=== PATIENT | female | born 1955 | race Two or more races ===

== ENCOUNTER 2016-09-28 18:01 | Emergency (ER) | payer BC, OTHER ==
[~2016-09-28] VITALS: Ht 157.5 cm; Wt 62.1 kg
[~2016-09-28 18:01] MED LIST: LOSA25TA3 PO; [UNRECOGNIZED DRUG - REMARK]; [UNRECOGNIZED DRUG - REMARK]
[2016-09-28] MEDS ORDERED: MORPHINE SULFATE INJ 2 MG/ML DISP.SYRIN ONE (19:27)
[2016-09-28] MEDS ORDERED: IV NS 0.9% 1,000 ML ONE (19:28)
[2016-09-28] MEDS ORDERED: METOCLOPRAMIDE HCL 10 MG/2 ML VIAL ONE (19:28)
[2016-09-28] MEDS ORDERED: IV SET PRIMARY 1 EA INFUS.SET MC ONE (19:28)
[2016-09-28] MEDS ORDERED: MORPHINE SULFATE INJ 2 MG/ML DISP.SYRIN IJ ONE (19:30)
[2016-09-28] MEDS ORDERED: METOCLOPRAMIDE HCL 10 MG/2 ML VIAL IV ONE (19:30)
[2016-09-28] MEDS ORDERED: IV NS 0.9% 1,000 ML BAG IV ONE (19:30)
[2016-09-28 21:07] VITALS: BP 161/81
== END 2016-09-28 21:08 | disposition home or self-care (01) ==
LOC: ER 18:06
DX: R51 Headache (principal); G43.909 Migraine, unspecified, not intractable, without status migrainosus; K21.9 Gastro-esophageal reflux disease without esophagitis; Z90.710 Acquired absence of both cervix and uterus
CPT/HCPCS: 96361; 96374; 96375; 99284; J2270; J2765; J7030

== ENCOUNTER 2016-11-04 06:13 | Outpatient (CLI) | payer BC, OTHER ==
[2016-11-04 08:21] LABS: BASOPHILS % (AUTO) 0.3 % (0.0-2.0); DIFF TOTAL % 100 %; EOSINOPHILS # (AUTO) 0.1 /CMM (0.0-0.7); EOSINOPHILS % (AUTO) 2.1 % (0.0-6.0); HEMATOCRIT 42 % (33-45); KETONES,URINE NEGATIVE (NEGATIVE); LEUKOCYTE ESTERASE ,URINE 3+ (NEGATIVE); LYMPHOCYTES % (AUTO) 36.7 % (20.0-44.0); MEAN CORPUSCULAR HEMOGLOBIN 30 PG (26.0-33.0); MEAN CORPUSCULAR HGB CONC 34 g/dl (31.0-36.0); MEAN CORPUSCULAR VOLUME 90 fL (82-100); MONOCYTES # (AUTO) 0.3 /CMM (0.1-1.30); MONOCYTES % (AUTO) 6.1 % (2.0-12.0); NEUTROPHILS % (AUTO) 54.8 % (43.0-81.0); PLATELET COUNT (AUTO) 289 /CMM (150-450); RED BLOOD CELL COUNT(AUTO) 4.66 MIL/uL (4.0-5.2); WHITE BLOOD COUNT (AUTO) 5.5 K/uL (4.3-11.0)
[2016-11-04 08:26] LABS: ADD UA MICROSCOPIC YES
[2016-11-04 08:37] LABS: ALBUMIN 3.7 g/dL (3.4-5.0); BILIRUBIN,TOTAL 0.5 mg/dL (0.2-1.0); CALCIUM, SERUM 8.8 mg/dL (8.5-10.1); CREATININE 0.7 mg/dL (0.6-1.3); POTASSIUM 3.7 mmol/L (3.5-5.1); TOTAL PROTEIN, SERUM 7.5 g/dL (6.4-8.2)
[2016-11-04 08:42] LABS: THYROID STIMULATING HORMONE 2.969 uIU/mL (0.358-3.74)
[2016-11-04 09:15] LABS: ADD URINE CULTURE YES; RBC,URINE 0-2 /HPF (0-2)
== END 2016-11-04 23:59 | disposition home or self-care (01) ==
LOC: LAB 06:13
DX: I10 Essential (primary) hypertension (principal); K21.9 Gastro-esophageal reflux disease without esophagitis; E78.5 Hyperlipidemia, unspecified; E55.9 Vitamin D deficiency, unspecified; R53.83 Other fatigue
CPT/HCPCS: 36415; 80053-TC; 80061-TC; 81000-TC; 82272-TC; 82306; 84439-TC; 84443-TC; 84481; 85025-TC; 87086-TC

== ENCOUNTER 2017-09-16 09:06 | Outpatient (CLI) | payer BC, OTHER | END 2017-09-17 23:59 | disposition home or self-care (01) | LOC: RAD 09:06 | DX: M25.521 Pain in right elbow (principal) | CPT/HCPCS: 73080-TC ==

== ENCOUNTER 2017-12-11 02:01 | Emergency (ER) | payer BC, OTHER ==
[~2017-12-11] VITALS: Ht 154.9 cm; Wt 61.2 kg
--- NOTE | 2017-12-11 02:01 | NUR ---
PT C/O ITCHING AND REDNESS THROUGHOUT BODY S/P EATING DORITOS 10PM. NO SOB OR PAIN. VSS NAD. WILL CONTINUE TO MONITOR FOR ANY CHANGES DURING THE SHIFT.
[2017-12-11] MEDS ORDERED: diphenhydrAMINE HCL 50 MG/ML VIAL ONE (02:20)
[2017-12-11] MEDS ORDERED: predniSONE 20 MG TABLET ONE (02:21)
[2017-12-11] MEDS ORDERED: predniSONE 20 MG TABLET PO ONE (02:30)
[2017-12-11] MEDS ORDERED: diphenhydrAMINE HCL 50 MG/ML VIAL IM ONE (02:30)
--- NOTE | 2017-12-11 03:19 | NUR ---
PT TO SPEAK TO NURSING APPOINTMENT COORDINATOR TO DETERMINE IF GOING BACK TO WORK OR NOT
[2017-12-11 03:22] VITALS: BP 154/113
== END 2017-12-11 03:23 | disposition home or self-care (01) ==
LOC: ER 02:03
DX: T78.1XXA Other adverse food reactions, not elsewhere classified, initial encounter (principal); I10 Essential (primary) hypertension; K21.9 Gastro-esophageal reflux disease without esophagitis; G43.909 Migraine, unspecified, not intractable, without status migrainosus; G89.29 Other chronic pain; Z90.710 Acquired absence of both cervix and uterus; X58.XXXA Exposure to other specified factors, initial encounter
CPT/HCPCS: A4606; J1200; Z7610

== ENCOUNTER 2017-12-17 12:24 | Emergency (ER) | payer BC, OTHER ==
[~2017-12-17] VITALS: Ht 165.1 cm; Wt 62.1 kg
--- NOTE | 2017-12-17 12:37 | NUR ---
BB DAUGHTER: COUGH, HEADACHE, NAUSEA, EAR PAIN, FLU SYMPTOMS SINCE TUESDAY
--- NOTE | 2017-12-17 12:37 | NUR ---
BB DAUGHTER: COUGH, HEADACHE, NAUSEA, EAR PAIN, FLU SYMPTOMS SINCE TUESDAY
[2017-12-17 12:54] VITALS: BP 155/86
--- NOTE | 2017-12-17 12:54 | NUR ---
Patient discharged to home in stable condition. Written and verbal after care instructions given. Patient verbalizes understanding of instruction.
== END 2017-12-17 12:55 | disposition home or self-care (01) ==
LOC: ER 12:27
DX: J40 Bronchitis, not specified as acute or chronic (principal); J06.9 Acute upper respiratory infection, unspecified; I10 Essential (primary) hypertension; K21.9 Gastro-esophageal reflux disease without esophagitis; G89.29 Other chronic pain; G43.909 Migraine, unspecified, not intractable, without status migrainosus; Z90.710 Acquired absence of both cervix and uterus
CPT/HCPCS: A4606; Z7610

== ENCOUNTER 2018-04-11 13:08 | Emergency (ER) | payer BC, OTHER ==
[~2018-04-11] VITALS: Ht 152.4 cm; Wt 56.2 kg
--- NOTE | 2018-04-11 13:20 | NUR ---
PRESENTS TO ER C/O L SHOULDER PAIN S/P LIFTING HEAVY OBJECT AT HOME. NO TRAUMA NOTED, A/OX 4, BREATHING EVEN AND UNLABORED. NO SOB, NAD, VITALS STABLE. SAFETY AND COMFORT MEASURES IN PLACE. AWAITING MD ORDERS.
[2018-04-11] MEDS ORDERED: KETOROLAC TROMETHAMINE INJ 60 MG/2 ML VIAL IM ONE (13:30)
[2018-04-11] MEDS ORDERED: KETOROLAC TROMETHAMINE INJ 30 MG/ML VIAL ONE (13:34)
[2018-04-11 13:43] VITALS: BP 143/82
--- NOTE | 2018-04-11 13:44 | NUR ---
Patient discharged to home in stable condition. Written and verbal after care instructions given. Patient verbalizes understanding of instruction.
== END 2018-04-11 13:43 | disposition home or self-care (01) ==
LOC: ER 13:15
DX: S29.012A Strain of muscle and tendon of back wall of thorax, initial encounter (principal); S46.912A Strain of unspecified muscle, fascia and tendon at shoulder and upper arm level, left arm, initial encounter; M62.830 Muscle spasm of back; G43.909 Migraine, unspecified, not intractable, without status migrainosus; K21.9 Gastro-esophageal reflux disease without esophagitis; G89.29 Other chronic pain; Z90.710 Acquired absence of both cervix and uterus; Z98.890 Other specified postprocedural states; X50.0XXA Overexertion from strenuous movement or load, initial encounter; Y93.89 Activity, other specified; Y92.009 Unspecified place in unspecified non-institutional (private) residence as the place of occurrence of the external cause; Y99.8 Other external cause status
CPT/HCPCS: A4606; J1885; Z7610

== ENCOUNTER 2018-05-29 12:07 | Emergency (ER) | payer MEDICARE, BC, OTHER ==
[~2018-05-29] VITALS: Ht 154.9 cm; Wt 62.6 kg
--- NOTE | 2018-05-29 12:20 | NUR ---
PATIENT TO ED DT NECK PAIN AND POSTERIOR HEAD PAIN S/P GLF X 2 DAYS AGO, -KO. PATIENT IS AWAKE AND ALERT. NOT IN DISTRESS. SKIN IS WARM TO TOUCH AND NON DIAPHORETIC. PT IS AFEBRILE. VSS
[2018-05-29] MEDS ORDERED: ONDANSETRON 4 MG TAB.RAPDIS ONE (12:59)
[2018-05-29] MEDS ORDERED: HYDROCODONE/APAP 5/325MG 1 EACH TABLET ONE (12:59)
[2018-05-29] MEDS ORDERED: HYDROCODONE/APAP 5/325MG 1 EACH TABLET PO ONE (13:00)
[2018-05-29] MEDS ORDERED: ONDANSETRON 4 MG TAB.RAPDIS PO ONE (13:00)
[2018-05-29 14:42] VITALS: BP 132/88
--- NOTE | 2018-05-29 14:42 | NUR ---
Patient discharged to home in stable condition. Written and verbal after care instructions given. Patient verbalizes understanding of instruction.
== END 2018-05-29 14:43 | disposition home or self-care (01) ==
LOC: ER 12:15
DX: S16.1XXA Strain of muscle, fascia and tendon at neck level, initial encounter (principal); M19.011 Primary osteoarthritis, right shoulder; M19.012 Primary osteoarthritis, left shoulder; R51 Headache; G89.29 Other chronic pain; M54.9 Dorsalgia, unspecified; I10 Essential (primary) hypertension; K21.9 Gastro-esophageal reflux disease without esophagitis; Z90.710 Acquired absence of both cervix and uterus; Z98.890 Other specified postprocedural states; W18.30XA Fall on same level, unspecified, initial encounter; Y93.89 Activity, other specified; Y92.89 Other specified places as the place of occurrence of the external cause; Y99.8 Other external cause status
CPT/HCPCS: 70450; 72125; 73030 ×2; 99284; A4606; Q0162; Z7610

== ENCOUNTER 2018-09-07 15:42 | Emergency (ER) | payer BC, MEDICARE ==
[~2018-09-07] VITALS: Ht 152.4 cm; Wt 61.7 kg
[2018-09-07 15:52] VITALS: BP 186/110
== END 2018-09-07 16:38 | disposition home or self-care (01) ==
LOC: ER 15:44
DX: J40 Bronchitis, not specified as acute or chronic (principal); I10 Essential (primary) hypertension; Z90.89 Acquired absence of other organs; Z90.710 Acquired absence of both cervix and uterus; Z98.890 Other specified postprocedural states; Z79.899 Other long term (current) drug therapy
CPT/HCPCS: A4606; Z7610

== ENCOUNTER 2019-01-02 09:00 | Outpatient (CLI) | payer BC ==
[2019-01-02 09:52] LABS: BASOPHILS % (AUTO) 0.6 % (0.0-2.0); EOSINOPHILS % (AUTO) 2.8 % (0.0-6.0); HEMATOCRIT 42 % (33-45); HEMOGLOBIN 14.3 g/dL (11.5-14.8); LYMPHOCYTES # (AUTO) 2.1 /CMM (0.8-4.8); LYMPHOCYTES % (AUTO) 39.5 % (20.0-44.0); MEAN CORPUSCULAR HGB CONC 34 g/dl (31.0-36.0); MEAN CORPUSCULAR VOLUME 92 fL (82-100); MONOCYTES # (AUTO) 0.4 /CMM (0.1-1.30); MONOCYTES % (AUTO) 7.5 % (2.0-12.0); NEUTROPHILS # (AUTO) 2.6 /CMM (1.8-8.9); NEUTROPHILS % (AUTO) 49.6 % (43.0-81.0); PLATELET COUNT (AUTO) 263 /CMM (150-450); RED BLOOD CELL COUNT(AUTO) 4.55 MIL/uL (4.0-5.2); WHITE BLOOD COUNT (AUTO) 5.2 K/uL (4.3-11.0)
[2019-01-02 10:04] LABS: APPEARANCE,URINE CLEAR (CLEAR); BILIRUBIN,URINE NEGATIVE (NEGATIVE); BLOOD, URINE TRACE-INTA Ery/uL (NEGATIVE); COLOR,URINE YELLOW (YELLOW); KETONES,URINE NEGATIVE (NEGATIVE); LEUKOCYTE ESTERASE ,URINE 1+ (NEGATIVE); NITRITE, URINE NEGATIVE (NEGATIVE); PROTEIN,URINE NEGATIVE (NEGATIVE); UGLUCOSE NEGATIVE (NEGATIVE); UROBILINOGEN,URINE 0.2 EU/dL (0.2)
[2019-01-02 10:18] LABS: BACTERIA,URINE Few /HPF (None Seen); RBC,URINE 0-2 /HPF (0-2)
[2019-01-02 10:19] LABS: SQUAMOUS EPITHELIAL CELL,UR Few /HPF (None Seen)
[2019-01-02 10:55] LABS: BILIRUBIN,TOTAL 0.5 mg/dL (0.2-1.0); CREATININE 0.7 mg/dL (0.6-1.3); MAGNESIUM 2.1 mg/dL (1.8-2.4); PHOSPHORUS 3.5 mg/dL (2.5-4.9); POTASSIUM 3.7 mmol/L (3.5-5.1); TOTAL PROTEIN, SERUM 7.7 g/dL (6.4-8.2)
[2019-01-02 10:59] LABS: THYROID STIMULATING HORMONE 1.968 uIU/mL (0.358-3.74)
== END 2019-01-02 23:59 | disposition home or self-care (01) ==
LOC: LAB 09:00
PROVIDERS: ATTEND Internal Medicine
DX: Z00.00 Encounter for general adult medical examination without abnormal findings (principal); J44.9 Chronic obstructive pulmonary disease, unspecified; E78.5 Hyperlipidemia, unspecified; M81.0 Age-related osteoporosis without current pathological fracture; I10 Essential (primary) hypertension
CPT/HCPCS: 36415; 80053-TC; 80061-TC; 81000-TC; 83540-TC; 83735-TC; 83970; 84100-TC; 84439-TC; 84443-TC; 85025-TC; 87086-TC

== ENCOUNTER 2019-01-27 02:39 | Inpatient (IN) | payer BC, MEDICARE ==
[2019-01-27] VITALS (8 sets, daily range): BP systolic 136–155; BP diastolic 76–90
[~2019-01-27] VITALS: Ht 160 cm; Wt 62.3 kg
--- NOTE | 2019-01-27 02:39 | NUR ---
PT HAD UNWITNESSED SYNCOPAL EPISODE ON THE 3RD FLOOR, PT IS A MEDICAL OFFICE RECEPTIONIST AND WAS FOUND ON FLOOR IN ROOM 314. PT WAS PLACED ON BED IN 3RD FLOOR AND BROUGHT TO ER BED 8. PT ON MONITOR IN BED 8. PT DENIES PAIN AT THIS TIME. AOX4. MD AT BEDSIDE.
--- NOTE | 2019-01-27 02:40 | NUR ---
TECH AT BEDSIDE FOR EKG
--- NOTE | 2019-01-27 02:40 | NUR ---
BLOOD DRAWN AND GIVEN TO LAB
[2019-01-27 02:52] LABS: BASOPHILS % (AUTO) 0.5 % (0.0-2.0); EOSINOPHILS % (AUTO) 2.4 % (0.0-6.0); HEMATOCRIT 42 % (33-45); HEMOGLOBIN 14.4 g/dL (11.5-14.8); LYMPHOCYTES # (AUTO) 3.4 /CMM (0.8-4.8); LYMPHOCYTES % (AUTO) 42.6 % (20.0-44.0); MEAN CORPUSCULAR HGB CONC 34 g/dl (31.0-36.0); MEAN CORPUSCULAR VOLUME 91 fL (82-100); MONOCYTES # (AUTO) 0.7 /CMM (0.1-1.30); MONOCYTES % (AUTO) 8.7 % (2.0-12.0); NEUTROPHILS # (AUTO) 3.7 /CMM (1.8-8.9); NEUTROPHILS % (AUTO) 45.8 % (43.0-81.0); PLATELET COUNT (AUTO) 287 /CMM (150-450); RED BLOOD CELL COUNT(AUTO) 4.64 MIL/uL (4.0-5.2)
[2019-01-27 03:00] LABS: ALANINE AMINOTRANSFERASE 21 U/L (12-78); ALBUMIN 3.8 g/dL (3.4-5.0); ALKALINE PHOSPHATASE 132 U/L (46-116); ASPARTATE AMINOTRANSFERASE 12 U/L (15-37); BILIRUBIN,DIRECT 0.1 mg/dL (0.0-0.2); BILIRUBIN,TOTAL 0.6 mg/dL (0.2-1.0); CALCIUM, SERUM 9.4 mg/dL (8.5-10.1); CARBON DIOXIDE 29 mmol/L (21-32); CHLORIDE 104 mmol/L (98-107); CREATININE 1.1 mg/dL (0.6-1.3); GLUCOSE 118 mg/dL (74-106); SODIUM SERUM 144 mmol/L (136-145); TOTAL PROTEIN, SERUM 7.4 g/dL (6.4-8.2); UREA NITROGEN, BLOOD 25 mg/dL (7-18)
[2019-01-27] MEDS ORDERED: ONDANSETRON HCL/PF 4 MG/2 ML VIAL IVP ONE (03:00)
[2019-01-27] MEDS ORDERED: IV NS 0.9% 1,000 ML BAG IV ONE (03:00)
[2019-01-27 03:01] LABS: POTASSIUM 2.8 mmol/L (3.5-5.1)
--- NOTE | 2019-01-27 03:21 | NUR ---
PT TAKEN TO RADIOLOGY VIA DONNA
--- NOTE | 2019-01-27 03:41 | NUR ---
RADIOLOGY AT BEDSIDE FOR XRAY
--- NOTE | 2019-01-27 03:56 | NUR ---
CALLED NURS SUP FOR TELE BED
[2019-01-27] MEDS ORDERED: HYDROCODONE/APAP 5/325MG 1 EACH TABLET PO PRN (04:00)
[2019-01-27] MEDS ORDERED: MAGNESIUM HYDROXIDE 30 ML UDC PO PRN (04:00)
[2019-01-27] MEDS ORDERED: ZOLPIDEM TARTRATE 5 MG TABLET PO PRN (04:00)
[2019-01-27] MEDS ORDERED: ONDANSETRON HCL/PF 4 MG/2 ML VIAL IVP PRN (04:00)
[2019-01-27] MEDS ORDERED: MAG HYDROX/AL HYDROX/SIMETH 30 ML UDC PO PRN (04:00)
[2019-01-27] MEDS ORDERED: ACETAMINOPHEN 325 MG TABLET PO PRN (04:00)
[2019-01-27] MEDS ORDERED: Z GUARD REMEDY 2 OZ OINT TP PRN (04:00)
--- NOTE | 2019-01-27 04:12 | NUR ---
PT ASSIGNED TO 319
[2019-01-27 04:18] LABS: MAGNESIUM 2.1 mg/dL (1.8-2.4); PHOSPHORUS 3.5 mg/dL (2.5-4.9)
--- NOTE | 2019-01-27 04:18 | NUR ---
REPORT GIVEN TO VLADISLAV LGASS.
[2019-01-27] MEDS ORDERED: IV NS 0.9% 1,000 ML IV PRN (05:00)
[2019-01-27] MEDS: POTASSIUM CL. PREMIX PERIPHER. 50 ML IV SCH ×4 (05:10→09:52)
--- NOTE | 2019-01-27 05:15 | NUR ---
TELE/RN OPENING NOTES PT RECEIVED FROM ER VIA DONNA. ON ROOM AIR, BREATHING EVEN AND UNLABORED. DENIES SOB. IV TO RAC PATENT AND INTACT. PLACED ON TELE MONITOR SHOWING SR WITH BORDERLINE 1ST DEGREE BLOCK, HR 80'S. HOB ELEVATED. BILAT. UPPER SIDE RAILS IN PLACE. BED IN LOW/LOCKED POSITION WITH CALL LIGHT IN REACH. BELONGINGS LIST COMPLETED. DOES NOT REMEMBER ALL OF HOME MEDICATIONS. DAUGHTER WILL COME IN THE MORNING WITH MEDS. WILL CONTINUE TO MONITOR
--- NOTE | 2019-01-27 06:00 | NUR ---
ORTHOSTATIC BP LAYING 137/83, 74 SITTING 151/79, 81 STANDING 155/76, 83
--- NOTE | 2019-01-27 07:00 | NUR ---
TELE/RN CLOSING NOTES PT AWAKE, FAMILY AT BEDSIDE. ON ROOM AIR, BREATHING EVEN AND UNLABORED. DENIES SOB. STILL NOTES DISCOMFORT TO MEDIAL CHEST AND BACK. ADMINISTERED TYLENOL WITH SMALL SIP OF WATER. IV TO RAC PATENT AND INTACT RUNNING IVF ORDERED. ORTHOSTATIC BP'S COMPLETED. ON TELE MONITOR SHOWING SR WITH BORDERLINE 1ST DEGREE BLOCK, HR 86. NO NEEDS EXPRESSED AT THIS TIME. KEPT NPO FOR CARDIO CONSULT. HOB ELEVATED. BILAT. UPPER SIDE RAILS IN PLACE. BED IN LOW/LOCKED POSITION WITH CALL LIGHT IN REACH. ENDORSED TO DAY SHIFT RN YAHAIRA AND ADMINISTRATION OF REMAINING 2 BAGS OF POTASSIUM IV.
--- NOTE | 2019-01-27 07:10 | NUR ---
COSMETICIAN NOTES PATIENT IN BED ALERT ORIENTED X 3. NO ACUTE DISTRESS NOTED. BREATHING UNLABORED, NO SOB NOTED. IV ACCESS PATENT AND INTACT, NO REDNESS OR SWELLING NOTED. SAFETY MEASURES IN PLACE. CALL LIGHT WITHIN REACH. WILL CONTINUE TO MONITOR ACCORDINGLY.
[2019-01-27] MEDS ORDERED: IBUP-1955 PO (08:13)
[2019-01-27] MEDS ORDERED: ATOR40TA PO (08:13)
[2019-01-27] MEDS ORDERED: SUCR1TAB PO (08:13)
[2019-01-27] MEDS ORDERED: LOSA1TAB36 PO (08:13)
[2019-01-27] MEDS ORDERED: TRAM50TA2 PO (08:13)
[2019-01-27] MEDS ORDERED: POTA8CAP10 PO (08:13)
[2019-01-27] MEDS ORDERED: VENL75CA62 PO (08:13)
[2019-01-27] MEDS ORDERED: ZOLP5TAB8 PO (08:13)
[2019-01-27] MEDS: VENLAFAXINE XR 75 MG CAP.SR.24H PO SCH (09:00)
[2019-01-27] MEDS ORDERED: POTASSIUM CHLORIDE 20 MEQ TAB.PRT.SR PO SCH (09:00)
[2019-01-27] MEDS: SUCRALFATE 1 G TABLET PO SCH ×3 (09:52→17:06)
[2019-01-27] MEDS: ATORVASTATIN 40 MG TABLET PO SCH (09:52)
[2019-01-27] MEDS: IV NS 0.9% 1,000 ML IV PRN ×3 (09:56→23:38)
--- NOTE | 2019-01-27 10:19 | NUR ---
HYDRAULIC STRAINER OPERATOR NOTES CLARIFIED WITH DR MCDOWELL REGARDING ORDER FOR K Dur(POTASSIUM CHLORIDE 20 MEQ TAB.PRT.SR) 20 MEQ PO Q1HR Total Doses: 5, MADE AWARE POTASSIUM IV 10MEQ X 4 DOSES ORDERED ALREADY THIS AM, DR MCDOWELL WITH NEW ORDER TO DISCONTINUE ORDER FOR K Dur(POTASSIUM CHLORIDE 20 MEQ TAB.PRT.SR) 20 MEQ PO Q1HR Total Doses: 5 HE MADE AND RECHECK POTASSIUM LEVEL TOMORROW. NOTED AND CARRIED OUT.
--- NOTE | 2019-01-27 18:55 | NUR ---
MS RN NOTES PATIENT IN BED ALERT ORIENTED X 3. NO ACUTE DISTRESS NOTED. BREATHING UNLABORED, NO SOB NOTED. IV ACCESS PATENT AND INTACT, NO REDNESS OR SWELLING NOTED. DUE MEDICATIONS GIVEN. NEEDS ATTENDED AND ANTICIPATED. KEPT CLEAN DRY AND COMFORTABLE. SAFETY MEASURES IN PLACE. CALL LIGHT WITHIN REACH. WILL ENDORSE TO NIGHT NURSE FOR CONTINUITY OF CARE.
--- NOTE | 2019-01-27 19:22 | NUR ---
RN NOTES RECEIVED PATIENT AWAKE, RESTING COMFORTABLY IN BED. PATIENT IS A/O X 3. FAMILY AT BEDSIDE. NO RESPIRATORY DISTRESS NOTED. DENIES SHORTNESS OF BREATH. IV ACCESS PATENT AND INTACT. SAFETY PRECAUTIONS IMPLEMENTED. CALL LIGHT WITHIN REACH. WILL CONTINUE TO MONITOR PATIENT THROUGHOUT THE SHIFT.
--- NOTE | 2019-01-27 21:00 | NUR ---
RN NOTES PATIENT REQUESTED AMBIEN FOR SLEEP.
[2019-01-27] MEDS ORDERED: ZOLPIDEM TARTRATE 5 MG TABLET PO SCH (22:00)
--- NOTE | 2019-01-27 22:00 | NUR ---
RN NOTES IV FLUIDS NOT FULLY DOCUMENTED CORRECTLY DUE TO PATIENT BENDING ARM RANDOMLY, THUS STOPPING THE IV LINE TO STOP MOMENTARILY.
[2019-01-28] MEDS: IV NS 0.9% 1,000 ML IV PRN (04:37)
[2019-01-28 06:08] LABS: APPEARANCE,URINE CLEAR (CLEAR); BILIRUBIN,URINE NEGATIVE (NEGATIVE); BLOOD, URINE NEGATIVE Ery/uL (NEGATIVE); COLOR,URINE YELLOW (YELLOW); KETONES,URINE NEGATIVE (NEGATIVE); LEUKOCYTE ESTERASE ,URINE NEGATIVE (NEGATIVE); NITRITE, URINE NEGATIVE (NEGATIVE); PROTEIN,URINE NEGATIVE (NEGATIVE); UGLUCOSE NEGATIVE (NEGATIVE); UROBILINOGEN,URINE 0.2 EU/dL (0.2)
[2019-01-28 06:12] LABS: BASOPHILS % (AUTO) 0.4 % (0.0-2.0); EOSINOPHILS % (AUTO) 2.7 % (0.0-6.0); HEMATOCRIT 36 % (33-45); HEMOGLOBIN 12.4 g/dL (11.5-14.8); LYMPHOCYTES # (AUTO) 1.5 /CMM (0.8-4.8); LYMPHOCYTES % (AUTO) 37.8 % (20.0-44.0); MEAN CORPUSCULAR HGB CONC 34 g/dl (31.0-36.0); MEAN CORPUSCULAR VOLUME 92 fL (82-100); MONOCYTES # (AUTO) 0.3 /CMM (0.1-1.30); MONOCYTES % (AUTO) 8.3 % (2.0-12.0); NEUTROPHILS % (AUTO) 50.8 % (43.0-81.0); PLATELET COUNT (AUTO) 221 /CMM (150-450); RED BLOOD CELL COUNT(AUTO) 3.91 MIL/uL (4.0-5.2); WHITE BLOOD COUNT (AUTO) 3.9 K/uL (4.3-11.0)
[2019-01-28 06:30] LABS: ALBUMIN 2.8 g/dL (3.4-5.0); BILIRUBIN,TOTAL 0.6 mg/dL (0.2-1.0); CALCIUM, SERUM 7.8 mg/dL (8.5-10.1); CREATININE 0.6 mg/dL (0.6-1.3); MAGNESIUM 1.8 mg/dL (1.8-2.4); PHOSPHORUS 2.7 mg/dL (2.5-4.9); POTASSIUM 4.1 mmol/L (3.5-5.1); TOTAL PROTEIN, SERUM 5.8 g/dL (6.4-8.2)
[2019-01-28 06:36] LABS: THYROID STIMULATING HORMONE 1.05 uIU/mL (0.358-3.74)
--- NOTE | 2019-01-28 06:44 | NUR ---
RN CLOSING NOTES PATIENT IS RESTING IN BED COMFORTABLY. NO SIGNS OF RESPIRATORY DISTRESS. NO SIGNS OF SHORTNESS OF BREATH NOTED. IV SITE PATENT AND INTACT. NO SIGNS OF PAIN OR DISCOMFORT AT THIS TIME. ALL NEEDS ATTENDED TO. PATIENT KEPT CLEAN DRY AND COMFORTABLE. SAFETY PRECAUTIONS IMPLEMENTED. CALL LIGHT WITHIN REACH. WILL CONTINUE TO MONITOR AND ENDORSE TO AM RN FOR YAHAIRA.
--- NOTE | 2019-01-28 07:20 | NUR ---
MS/RN OPENING NOTE THE PATIENT ALERT AND ORIENTED X4. IN ROOM AIR AND DENIES SOB. RESPIRATION REGULAR AND UNLABORED. DENIES PAIN. THE PATIENT IS IN NO APPARENT DISTRESS AT THIS TIME. RAC G 20 PATENT AND NORMAL SALINE INFUSING AT 250ML/HR AND NO S/S INFILTRATION NOTED. BED LOW AND LOCKED. SIDE RAILS UP X3. CALL LIGHT WITHIN REACH. WILL CONTINUE TO MONITOR.
[2019-01-28 08:00] VITALS: BP_SYST 154; BP_DIAS 0; BP_DIAS 81
[2019-01-28] MEDS: ATORVASTATIN 40 MG TABLET PO SCH (08:51)
[2019-01-28] MEDS: SUCRALFATE 1 G TABLET PO SCH ×2 (08:51→12:28)
[2019-01-28] MEDS: VENLAFAXINE XR 75 MG CAP.SR.24H PO SCH ×2 (08:51→09:00)
--- NOTE | 2019-01-28 09:23 | NUR ---
MS/RN NOTE EFFEXOR ER DUE AT 0900: THE PATIENT INITIALLY AGREED TO TAKE THE MEDICATION, HOWEVER, AFTER UPWRPPING THE MEDICATION AND PUTTING IT IN A MEDICATION CUP THE PATIENT REFUSED. EXLAINED RISKS AND BENEFITS BUT THE PATIENT STATED " I DON`T NEED TO TAKE THIS MEDICATION ANY MORE". THE MEDICATION IS WASTED IN MED ROOM AND IT WAS WITNESSED BY MARIA LUISA NOGUERA.
[2019-01-28] MEDS ORDERED: PNEUMOCOCCAL 23-VAL P-SAC VAC 0.5 ML VIAL SQ ONE (12:00)
--- NOTE | 2019-01-28 13:00 | NUR ---
MS/RN CLOSING NOTE THE PATIENT ALERT AND ORIENTED X4. DENIES PAIN. RESPIRATION REGULAR AND UNLABORED. IN ROOM AIR AND SATURATION IS AT 97%. DENIES SOB. DISCHARGE EDUCATION PROVIDED TO THE PATIENT AND SHE VERBALIZED UNDERSTANDING. DR MCDOWELL`S OFFICE INFORMATION PROVIDED. ALL NEEDS ATTENDED. THE PATIENT IS GETTING PICKED UP BY DAUGHTER. THE PATIENT LEAVING THE HOSPITAL IN STABLE CONDITION.
== END 2019-01-28 12:50 | disposition home or self-care (01) | DRG 73 ==
LOC: ER 02:41 → TELE 04:18 → MED 16:51
PROVIDERS: ADMIT Nurse Practitioner Acute Care; ATTEND Nurse Practitioner Acute Care
PROC: 5A2204Z Restoration of Cardiac Rhythm, Single (ICD-10-PCS; principal; 2019-01-27)
DX: G90.8 Other disorders of autonomic nervous system (principal); N17.0 Acute kidney failure with tubular necrosis; E78.5 Hyperlipidemia, unspecified; K21.9 Gastro-esophageal reflux disease without esophagitis; I10 Essential (primary) hypertension; E87.6 Hypokalemia; E89.0 Postprocedural hypothyroidism; Z79.899 Other long term (current) drug therapy; I49.9 Cardiac arrhythmia, unspecified; Z90.710 Acquired absence of both cervix and uterus; Z82.49 Family history of ischemic heart disease and other diseases of the circulatory system; Z82.3 Family history of stroke; G43.909 Migraine, unspecified, not intractable, without status migrainosus; F32.9 Major depressive disorder, single episode, unspecified; S23.421A Sprain of chondrosternal joint, initial encounter; X58.XXXA Exposure to other specified factors, initial encounter; Y92.89 Other specified places as the place of occurrence of the external cause
CPT/HCPCS: 36415; 70450-TC; 71045-TC; 80048-TC; 80053-TC; 80061-TC; 80076-TC; 81000-TC; 83735-TC; 84100-TC; 84443-TC; 84484-TC; 85025-TC; 87081-TC; 90732; 93307-TC; 93880-TC; G0378; J2405; J3480; J7030

== ENCOUNTER 2019-02-05 10:04 | Outpatient (CLI) | payer BC, MEDICARE ==
[~2019-02-05 10:04] MED LIST changes: +ATOR40TA PO; +IBUP-1955 PO; +LOSA1TAB36 PO; -LOSA25TA3 PO; +POTA8CAP10 PO; +SUCR1TAB PO; +TRAM50TA2 PO; +VENL75CA62 PO; +ZOLP5TAB8 PO; -[UNRECOGNIZED DRUG - REMARK]; -[UNRECOGNIZED DRUG - REMARK]
[2019-02-05 10:38] LABS: BASOPHILS % (AUTO) 0.6 % (0.0-2.0); EOSINOPHILS % (AUTO) 1.9 % (0.0-6.0); HEMATOCRIT 41 % (33-45); HEMOGLOBIN 13.9 g/dL (11.5-14.8); LYMPHOCYTES # (AUTO) 2.3 /CMM (0.8-4.8); LYMPHOCYTES % (AUTO) 38.3 % (20.0-44.0); MEAN CORPUSCULAR HGB CONC 34 g/dl (31.0-36.0); MEAN CORPUSCULAR VOLUME 92 fL (82-100); MONOCYTES # (AUTO) 0.5 /CMM (0.1-1.30); MONOCYTES % (AUTO) 8.7 % (2.0-12.0); NEUTROPHILS % (AUTO) 50.5 % (43.0-81.0); PLATELET COUNT (AUTO) 268 /CMM (150-450); RED BLOOD CELL COUNT(AUTO) 4.43 MIL/uL (4.0-5.2); WHITE BLOOD COUNT (AUTO) 5.9 K/uL (4.3-11.0)
[2019-02-05 10:44] LABS: CALCIUM, SERUM 8.8 mg/dL (8.5-10.1); CREATININE 0.7 mg/dL (0.6-1.3); POTASSIUM 3.7 mmol/L (3.5-5.1)
== END 2019-02-05 23:59 | disposition home or self-care (01) ==
LOC: LAB 10:04
DX: E87.6 Hypokalemia (principal)
CPT/HCPCS: 36415; 80048-TC; 85025-TC

== ENCOUNTER 2019-02-09 07:39 | Outpatient (CLI) ==
[~2019-02-09 07:39] MED LIST changes: -POTA8CAP10 PO; +POTA8CAP20 PO
== END 2019-02-09 23:59 | disposition home or self-care (01) ==
LOC: US 07:39
PROVIDERS: ATTEND Internal Medicine Interventional Cardiology
DX: K80.20 Calculus of gallbladder without cholecystitis without obstruction (principal)
CPT/HCPCS: 76705-TC

== ENCOUNTER 2019-08-10 19:43 | Emergency (ER) | payer BC, MEDICARE ==
[~2019-08-10] VITALS: Ht 157.5 cm; Wt 63.5 kg
--- NOTE | 2019-08-10 20:18 | NUR ---
PT COLLAPSED IN WAITING ROOM. PER DAUGHTER PT WAS C/O L ARM PAIN 2HRS FORESTRY FIRE AID. PT TAKEN TO BED 3 VIA WHEELCHAIR.
--- NOTE | 2019-08-10 20:22 | NUR ---
IV STARTED ON RAC 18G, LABS BG 118
--- NOTE | 2019-08-10 20:25 | NUR ---
PT AAOX4. PT STATED SHE HAS BACK PAIN AND CHEST PAIN 10/10 NON RADIATING. PLACED ON MONITOR.
--- NOTE | 2019-08-10 20:43 | NUR ---
PT BROUGHT TO CT
[2019-08-10] MEDS ORDERED: METOCLOPRAMIDE HCL 10 MG/2 ML VIAL ONE (20:58)
[2019-08-10] MEDS ORDERED: diphenhydrAMINE HCL 50 MG/ML VIAL ONE (20:58)
[2019-08-10] MEDS ORDERED: METOCLOPRAMIDE HCL 10 MG/2 ML VIAL IV ONE (21:00)
[2019-08-10] MEDS ORDERED: diphenhydrAMINE HCL 50 MG/ML VIAL IV ONE (21:00)
[2019-08-10] MEDS ORDERED: IV NS 0.9% 1,000 ML BAG IV ONE (21:00)
[2019-08-10 21:01] LABS: BASOPHILS % (AUTO) 0.5 % (0.0-2.0); EOSINOPHILS % (AUTO) 1.9 % (0.0-6.0); HEMATOCRIT 41 % (33-45); HEMOGLOBIN 13.8 g/dL (11.5-14.8); LYMPHOCYTES # (AUTO) 2.1 /CMM (0.8-4.8); LYMPHOCYTES % (AUTO) 36.2 % (20.0-44.0); MEAN CORPUSCULAR HGB CONC 34 g/dl (31.0-36.0); MEAN CORPUSCULAR VOLUME 92 fL (82-100); MONOCYTES # (AUTO) 0.5 /CMM (0.1-1.30); MONOCYTES % (AUTO) 9.5 % (2.0-12.0); NEUTROPHILS % (AUTO) 51.9 % (43.0-81.0); PLATELET COUNT (AUTO) 265 /CMM (150-450); RED BLOOD CELL COUNT(AUTO) 4.49 MIL/uL (4.0-5.2); WHITE BLOOD COUNT (AUTO) 5.7 K/uL (4.3-11.0)
[2019-08-10 21:12] LABS: CALCIUM, SERUM 9.4 mg/dL (8.5-10.1); CARBON DIOXIDE 27 mmol/L (21-32); CHLORIDE 106 mmol/L (98-107); CREATININE 0.8 mg/dL (0.6-1.3); GLUCOSE 113 mg/dL (74-106); POTASSIUM 3.2 mmol/L (3.5-5.1); SODIUM SERUM 143 mmol/L (136-145); UREA NITROGEN, BLOOD 16 mg/dL (7-18)
[2019-08-10 21:19] LABS: ALANINE AMINOTRANSFERASE 16 U/L (12-78); ALBUMIN 3.6 g/dL (3.4-5.0); ALKALINE PHOSPHATASE 122 U/L (46-116); ASPARTATE AMINOTRANSFERASE 7 U/L (15-37); BILIRUBIN,DIRECT 0.1 mg/dL (0.0-0.2); BILIRUBIN,TOTAL 0.3 mg/dL (0.2-1.0); TOTAL PROTEIN, SERUM 7.2 g/dL (6.4-8.2)
--- NOTE | 2019-08-10 22:58 | NUR ---
Patient discharged to home in stable condition. Written and verbal after care instructions given. Patient verbalizes understanding of instruction and RX. IV removed. Catheter intact and site benign. Pressure and 4x4 applied to site. No bleeding noted. pt ambulatory with a steady gait.
[2019-08-11 00:07] VITALS: BP 124/68
== END 2019-08-10 23:00 | disposition home or self-care (01) ==
LOC: ER 19:44
DX: R51 Headache (principal); R42 Dizziness and giddiness; M79.18 Myalgia, other site; R11.0 Nausea; M54.5 Low back pain; R07.89 Other chest pain; I10 Essential (primary) hypertension; E78.5 Hyperlipidemia, unspecified; K21.9 Gastro-esophageal reflux disease without esophagitis; Z90.89 Acquired absence of other organs; Z90.710 Acquired absence of both cervix and uterus; Z79.899 Other long term (current) drug therapy
CPT/HCPCS: 36415; 70450; 80048; 80076; 82962; 84484; 85025; 96361; 96374; 96375; 99284; J1200; J2765; J7030

== ENCOUNTER 2019-09-17 09:33 | Outpatient (CLI) | payer BC ==
[~2019-09-17] VITALS: Ht 152.4 cm; Wt 61.2 kg
[2019-09-17 10:03] LABS: CALCIUM, SERUM 9.2 mg/dL (8.5-10.1); CREATININE 0.6 mg/dL (0.6-1.3); POTASSIUM 3.7 mmol/L (3.5-5.1)
[2019-09-17] MEDS ORDERED: IOHEXOL-350 100 ML VIAL IV ONE (10:16)
[2019-09-17] MEDS ORDERED: IV NS 0.9% 250 ML IV ONE (10:16)
[2019-09-17] MEDS ORDERED: NITROGLYCERIN 0.4 MG/TAB BOTTLE ONE (10:19)
[2019-09-17] MEDS ORDERED: METOPROLOL TARTRATE INJ 5 MG/5 ML AMPUL ONE (10:20)
[2019-09-17] MEDS ORDERED: NITROGLYCERIN 4.9 GM SPRAY SL PRN (10:30)
[2019-09-17] MEDS ORDERED: METOPROLOL TARTRATE INJ 5 MG/5 ML AMPUL IVP PRN (10:30)
[2019-09-17] MEDS ORDERED: IV NS 0.9% 500 ML IV PRN (10:30)
[2019-09-17 10:35] VITALS: BP 122/70
--- NOTE | 2019-09-17 10:40 | NUR ---
outpt CTA; alert ,denies CP or SOb; tolerated CTA. VS stable post CTA; per Minerva supervisorl pt to go home after procedure. pt Dc'd home with family
== END 2019-09-17 23:59 | disposition home or self-care (01) ==
LOC: CT 09:33
PROVIDERS: ATTEND Internal Medicine Interventional Cardiology
DX: I25.10 Atherosclerotic heart disease of native coronary artery without angina pectoris (principal); J47.9 Bronchiectasis, uncomplicated; J42 Unspecified chronic bronchitis; K44.9 Diaphragmatic hernia without obstruction or gangrene; M46.00 Spinal enthesopathy, site unspecified; J98.4 Other disorders of lung; R55 Syncope and collapse
CPT/HCPCS: 36415; 75574; 80048; J3490; J7050; Q9967

== ENCOUNTER 2020-03-12 13:30 | Emergency (ER) | payer BC, OTHER ==
[~2020-03-12] VITALS: Ht 152.4 cm; Wt 59.9 kg
[2020-03-12 13:39] VITALS: BP 142/86
--- NOTE | 2020-03-12 14:12 | NUR ---
PT SWABBED FOR COVID19. SENT TO LAB. D/C HOME IN STABLE CONDITION.
== END 2020-03-12 14:13 | disposition home or self-care (01) ==
LOC: ER 13:30
DX: U07.1 COVID-19 (principal); R50.9 Fever, unspecified; R43.8 Other disturbances of smell and taste; M79.10 Myalgia, unspecified site; R43.0 Anosmia; E89.0 Postprocedural hypothyroidism; E78.5 Hyperlipidemia, unspecified; I10 Essential (primary) hypertension; K21.9 Gastro-esophageal reflux disease without esophagitis; Z90.710 Acquired absence of both cervix and uterus
CPT/HCPCS: 99283; C9803; U0003

== ENCOUNTER 2020-03-26 13:55 | Emergency (ER) | payer OTHER ==
[~2020-03-26] VITALS: Ht 152.4 cm; Wt 59.0 kg
[2020-03-26 14:04] VITALS: BP 83/16
--- NOTE | 2020-03-26 14:47 | NUR ---
Patient discharged to home in stable condition. Written and verbal after care instructions given. Patient verbalizes understanding of instruction.
== END 2020-03-26 14:47 | disposition home or self-care (01) ==
LOC: ER 13:55
DX: U07.1 COVID-19 (principal); I10 Essential (primary) hypertension; K21.9 Gastro-esophageal reflux disease without esophagitis; E78.5 Hyperlipidemia, unspecified; Z79.899 Other long term (current) drug therapy
CPT/HCPCS: 99283; C9803; U0003

== ENCOUNTER 2020-04-10 12:48 | Emergency (ER) | payer OTHER ==
[~2020-04-10] VITALS: Ht 152.4 cm; Wt 59.0 kg
[2020-04-10 13:11] VITALS: BP 140/74
--- NOTE | 2020-04-10 13:38 | NUR ---
COVID SWAB SPECIMEN OBTAINED AND SENT TO LAB.
--- NOTE | 2020-04-10 13:43 | NUR ---
Patient discharged to home in stable condition. Written and verbal after care instructions given. Patient verbalizes understanding of instruction.
== END 2020-04-10 13:44 | disposition home or self-care (01) ==
LOC: ER 12:48
DX: Z11.59 Encounter for screening for other viral diseases (principal); I10 Essential (primary) hypertension; K21.9 Gastro-esophageal reflux disease without esophagitis; E78.5 Hyperlipidemia, unspecified; Z79.899 Other long term (current) drug therapy
CPT/HCPCS: 99283; C9803; U0003